=== PATIENT | female | born 1985 | race Caucasian/White ===

== ENCOUNTER 2022-04-09 16:16 | Outpatient (CLI) | payer OTHER | END 2022-04-09 17:26 | disposition home or self-care (01) | LOC: EDSEX 16:16 → NST 16:16 | PROVIDERS: ATTEND Obstetrics & Gynecology | DX: Z34.82 Encounter for supervision of other normal pregnancy, second trimester (principal) ==

== ENCOUNTER 2022-05-31 10:29 | Inpatient (IN) | payer OTHER ==
[~2022-05-31] VITALS: Ht 165.1 cm; Wt 81.2 kg
[2022-05-31] MEDS ORDERED: PRENATAL TABLE1 EAC1 PO (18:16)
== END 2022-06-02 12:22 | disposition home or self-care (01) | DRG 833 ==
LOC: LDR 10:29
PROVIDERS: ADMIT Obstetrics & Gynecology Gynecology; ATTEND Obstetrics & Gynecology Gynecology
PROC: 4A1HXCZ Monitoring of Products of Conception, Cardiac Rate, External Approach (ICD-10-PCS; principal; 2022-05-31)
DX: O60.03 Preterm labor without delivery, third trimester (principal); Z3A.30 30 weeks gestation of pregnancy; Z20.822 Contact with and (suspected) exposure to COVID-19

== ENCOUNTER 2022-06-16 00:11 | Inpatient (IN) | payer OTHER ==
[~2022-06-16] VITALS: Ht 165.1 cm; Wt 78.0 kg
[~2022-06-16 00:11] MED LIST: PRENATAL TABLE1 EAC1 PO
[2022-06-16] MEDS ORDERED: NIFEDIPINE20 MG PO (02:55)
[2022-06-16] MEDS ORDERED: PRENATAL + DHA1 EAC1 PO (02:56)
== END 2022-06-17 08:51 | disposition home or self-care (01) | DRG 833 ==
LOC: LDR 00:11
PROVIDERS: ADMIT Obstetrics & Gynecology Maternal & Fetal Medicine; ATTEND Obstetrics & Gynecology Maternal & Fetal Medicine
PROC: 4A033R1 Measurement of Arterial Saturation, Peripheral, Percutaneous Approach (ICD-10-PCS; principal; 2022-06-16)
DX: O47.03 False labor before 37 completed weeks of gestation, third trimester (principal); O21.8 Other vomiting complicating pregnancy; Z3A.33 33 weeks gestation of pregnancy; Z20.822 Contact with and (suspected) exposure to COVID-19

== ENCOUNTER 2022-07-01 10:12 | Inpatient (IN) | payer OTHER ==
[~2022-07-01] VITALS: Ht 165.1 cm; Wt 81.6 kg
[~2022-07-01 10:12] MED LIST changes: +NIFEDIPINE20 MG PO; +PRENATAL + DHA1 EAC1 PO
[2022-07-01] MEDS ORDERED: NIFE60TA3 PO (13:57)
== END 2022-07-04 16:14 | disposition home or self-care (01) | DRG 833 ==
LOC: LDR 10:12 → OB/GYN 07-02 17:39
PROVIDERS: ADMIT Obstetrics & Gynecology; ATTEND Obstetrics & Gynecology
PROC: 4A1HXCZ Monitoring of Products of Conception, Cardiac Rate, External Approach (ICD-10-PCS; principal; 2022-07-01)
DX: O47.03 False labor before 37 completed weeks of gestation, third trimester (principal); Z3A.35 35 weeks gestation of pregnancy; Z20.822 Contact with and (suspected) exposure to COVID-19

== ENCOUNTER 2022-07-06 10:55 | Inpatient (IN) | payer OTHER ==
[~2022-07-06] VITALS: Ht 165.1 cm; Wt 84.8 kg
[~2022-07-06 10:55] MED LIST changes: +NIFE60TA3 PO
[2022-08-02] MEDS ORDERED: NIFEDIPINE ER60 M1 (08:37)
== END 2022-08-02 12:27 | disposition home or self-care (01) | DRG 807 ==
LOC: OB/GYN → LDR 07-30 21:16 → OB/GYN 07-31 20:42
PROVIDERS: ADMIT Obstetrics & Gynecology; ATTEND Obstetrics & Gynecology
PROC: 4A1HXCZ Monitoring of Products of Conception, Cardiac Rate, External Approach (ICD-10-PCS; 2022-07-30)
PROC: 10E0XZZ Delivery of Products of Conception, External Approach (ICD-10-PCS; principal; 2022-07-31)
PROC: 0KQM0ZZ Repair Perineum Muscle, Open Approach (ICD-10-PCS; 2022-07-31)
DX: O70.1 Second degree perineal laceration during delivery (principal); Z37.0 Single live birth; Z3A.39 39 weeks gestation of pregnancy; Z20.822 Contact with and (suspected) exposure to COVID-19

== ENCOUNTER 2022-07-15 16:27 | Outpatient (CLI) | payer OTHER | END 2022-07-15 17:39 | disposition home or self-care (01) | LOC: NST 16:27 | PROVIDERS: ATTEND Obstetrics & Gynecology | DX: Z34.83 Encounter for supervision of other normal pregnancy, third trimester (principal) ==

== ENCOUNTER 2022-07-19 09:59 | Outpatient (CLI) | payer OTHER | END 2022-07-19 10:39 | disposition home or self-care (01) | LOC: NST 09:59 | PROVIDERS: ATTEND Obstetrics & Gynecology | DX: Z34.83 Encounter for supervision of other normal pregnancy, third trimester (principal) ==

== ENCOUNTER 2024-04-23 21:31 | Emergency (ER) | payer OTHER ==
[~2024-04-23] VITALS: Ht 165.1 cm; Wt 82.6 kg
[~2024-04-23 21:31] MED LIST changes: +NIFEDIPINE ER60 M1
[2024-04-24] MEDS ORDERED: RINGERS SOLUTION,LACTATED 500 ML IV STA (01:25)
[2024-04-24 01:46] LABS: HEMATOCRIT 39.8 % (36.0-45.00); HEMOGLOBIN 13.6 g/dL (12.0-15.00); MEAN CELL VOLUME 88.7 fL (80.00-100.00); MEAN CORPUSCULAR HEMOGLOBIN 30.4 pg (27.00-32.0); MEAN CORPUSCULAR HGB CONC 34.2 g/dl (32.0-36.0); PLATELET COUNT 290 K/uL (150-450); RED BLOOD COUNT 4.48 M/uL (4.00-6.00); RED CELL DISTRIBUTION WIDTH 13.5 % (11.5-14.5)
[2024-04-24 02:31] LABS: CALCIUM 9.4 mg/dL (8.5-10.1); CREATININE SERUM 0.65 mg/dL (0.55-1.02); GFR 103.13; POTASSIUM 4.31 mEq/L (3.5-5.1)
== END 2024-04-24 05:44 | disposition home or self-care (01) ==
LOC: ER 21:33
DX: O03.9 Complete or unspecified spontaneous abortion without complication (principal); Z91.013 Allergy to seafood; D25.9 Leiomyoma of uterus, unspecified